=== PATIENT | female | born 2005 | race Caucasian/White ===

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

== ENCOUNTER 2024-01-06 15:01 | Outpatient (CLI) | payer MEDICAID, SELFPAY ==
[2024-01-06 15:01] VITALS: BMI 27.6
[2024-01-06 15:18] VITALS: BP 132/83; PULSE 91
[2024-01-06 15:33] VITALS: BP 131/89; PULSE 82
[2024-01-06 15:48] VITALS: BP 125/80; PULSE 99
[2024-01-06 17:01] VITALS: BP 124/79; PULSE 82
== END 2024-01-06 17:40 | disposition home or self-care (01) ==
LOC: OPOB 15:06 → OBGYN 15:07
PROVIDERS: Visit Provider Obstetrics & Gynecology
DX: O26.899 Other specified pregnancy related conditions, unspecified trimester (principal); Z3A.00 Weeks of gestation of pregnancy not specified; R10.9 Unspecified abdominal pain
CPT/HCPCS: 59025; 83986; 99211

== ENCOUNTER 2024-01-08 20:40 | Inpatient (IN) | payer MEDICAID, SELFPAY ==
[2024-01-08] VITALS (22 sets, daily range): BP systolic 133–204; BP diastolic 64–107; PULSE 92–123; TEMP 36.1–36.2; BMI 27.9
[2024-01-08 20:29] LABS: Basophils % 0.2 %; Eosinophils # 0.1 10^3/uL (0.0-0.8); Eosinophils % 0.9 %; Hematocrit 29.1 % (36-47); Lymphocytes # 2.4 10^3/uL (1.5-6.5); Lymphocytes % 19.2 %; Mean Corpuscular HGB Conc 34.4 g/dL (30-55); Mean Corpuscular Volume 90.1 fl (85-98); Mean Platelet Volume 10.4 fL (7.4-10.4); Monocytes # 0.8 10^3/uL (0.2-0.9); Monocytes % 6.3 %; Neutrophils # 9.06 10^3/uL (1.8-8.0); Neutrophils % 72.8 %; Nucleated Red Blood Cells % 0 %; Platelet Count 212 10^3/cmm (157-399); Red Blood Count 3.23 10^6/uL (3.85-5.65); Red Cell Distribution Width 14.7 % (12.1-15.1); White Blood Count 12.45 10^3/uL (4.5-13.0)
[2024-01-08] MEDS: magnesium sulfate premix 4 GM/100 ML PREMIX IV (20:57)
[2024-01-08] MEDS: dextrose 5%-lactated ringers 1,000 ML 125 ML IV (20:58)
--- NOTE | 2024-01-08 21:17 | P.HP_ITS ---
Providers/Chief Complaint 2 Admitting Physician: Mini Skelton DO Primary INSURANCE PREMIUM AUDITOR: Dr. Villafuerte Chief Complaint: Possible ROM and contractions HPI INSURANCE PREMIUM AUDITOR History of Present Illness Eva Sutton is a 18 year old female G1, P0 with LMP 04/13/2023 and MERARI 01/09/2024 currently at 39.6 weeks gestation admitted with complaints of spontaneous rupture membranes at 6:00 PM on 01/07/2024. Patient denies vaginal bleeding. She admits to good movement and occasional contraction. 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 Treatment was in [facility] at [facility]. Surgical history?multiple abdominal laparotomies for removal of neuroblastoma. Upon admissions patient's blood pressure was elevated, requiring magnesium sulfate for -induced hypertension treatment. This was explained to patient and her family to reduce the risk of seizure activity. I also reviewed hypertensive medication that will be used if needed to lower blood pressure to normal ranges. If monitoring indicates that the baby is not doing well and will not tolerate labor or if mother's blood pressure does not tolerate treatment and respond well then we may need to discuss treatment by section only if needed. Patient and family understands. Review of Systems 2 General: Reports: 10 or more systems reviewed and unremarkable except in HPI and below Medications/Allergies Home Medications Medication Instructions Recorded Confirmed Last Taken Type PNV 153-FA 400 mcg-om3 35 mg-dha 1 tab PO DAILY 05/21/23 01/08/24 01/08/24 History 25 mg-epa 5 mg-fish oil chew tablet ( Gummies) iron 1 tab PO DAILY 01/08/24 01/08/24 01/08/24 History Allergies Allergy/AdvReac Type Severity Reaction Status Date / Time No Known Allergies Allergy Verified 01/08/24 21:18 PFS INSURANCE PREMIUM AUDITOR 2 PFS: Medical History 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 She did have one large area cauterized. No pertinent past medical history neghx: htn,dm,thyroid,dvt/pe PCP: None Neuroblastoma chemotherapy and radiation treatment from age 4-7 years old. Treated in [place] at [facility] Surgical History History of laparotomy (~2007) to remove the neuroblastoma; she ended up having some chemotherapy and radiation. Family History Other Adopted Social History Smoking and tobacco/nicotine status: never used tobacco/nicotine Other Female Reproductive History: Hx Age of Menarche: 13 Duration of menses: 3-5 days Date of Last Menstrual Period: 04/13/23 Cycle Length: 28- 30 days Menstrual flow: normal/abnormal: normal Sexual History: How old were you when you first had sex?: 17 Less than 5 How long have you been with your current partner?: 1yr What is your sexual preference?: Heterosexual Sexual History Comment: History of genital warts at age 7, has not had an outbreak since age 12. History History History 2 1 Term 0 Miscarriages/Ectopic Living Children Care MERARI Calculator 2 Estimated Delivery Date Method Current WG Current Estimate 01/09/24 Ultrasound #1 39w 6d Other Estimates 01/18/24 LMP (Certain) 38w 4d Specific Issues/Plans * UTI- Ecoli treated 06/15/2023; NIC 09/22/23 * ANEMIA-- started bid iron at 24 weeks Vitals/I&O/Wt Last Vital Signs Pulse 123 H 01/08/24 21:14 BP 151/102 01/08/24 21:14 Physical Exam 2 Narrative: 18-year-old female alert and oriented x 3 in no acute distress. HENMT: COMMON NORMALS: normocephalic Resp: COMMON NORMALS: normal respiratory effort and clear to auscultation bilaterally Cardio: COMMON NORMALS: regular rate and regular rhythm OTHER: Slight murmur noted Back/Pelvis: COMMON NORMALS: no CVA tenderness OTHER: Pelvic exam via nursing staff?cervix 2/85%/-2 vertex presentation with clear fluid noted. Extremity: COMMON NORMALS: normal to inspection, no clubbing, cyanosis or edema, no calf tenderness and no pedal edema Neuro: COMMON NORMALS: patient oriented x3, CN's II-XII intact bilaterally and moves all extremities Psych: COMMON NORMALS: mental status grossly normal, Normal thought process present, cooperative, normal affect and activity/motor behavior normal Skin: COMMON NORMALS: no rashes or lesions noted and turgor normal Data 01/08/24 20:15 Results Labs OB ([facility]): 2 Obstetrics US 08/07/23 Blood Type A Positive 08/06/23 Antibody Screen Negative 08/06/23 Hct 29.1 % (36-47) L 01/08/24 Hgb 10.00 g/dL (12.4-14.8) L 01/08/24 Rho(D) Type Rh positive 08/06/23 Plt Count 212 10^3/cmm (157-399) 01/08/24 Hep Bs Antigen Non-reactive (Nonreactive) 06/15/23 Hepatitis C Antibody Non-reactive (Nonreactive) 06/15/23 Rubella IgG Antibody 16.8 IU/mL (0.0-10.0) H 06/15/23 RPR Nonreactive (Nonreactive) 06/15/23 HIV 1&2 Ab & HIV 1 Ag Non-reactive (Non-Reactiv) 06/15/23 TSH 2.62 uIU/mL (0.27-4.20) 06/15/23 Free T4 1.15 ng/dL (0.93-1.60) 06/15/23 C.trachomatis RNA (TMA) Not detected (NOT DETECTED) N.gonorrhoeae RNA (TMA) Not detected (NOT DETECTED) T. vaginalis Amp RNA Not detected (NOT DETECTED) 08/04/23 Chlamydia/GC Comment See note 08/04/23 Cystic Fibrosis Screen Negative 06/15/23 Glucose 1 Hr 50 gm 136 mg/dL (85-140) 09/22/23 Ser , Semi-Qnt 10143.00 mIU/mL 08/06/23 HCG, Qual Positive (Negative) H 05/21/23 Urine Opiates Screen Negative ng/mL (Negative) 06/15/23 Ur Barbiturates Screen Negative ng/mL (Negative) 06/15/23 Ur Phencyclidine Scrn Negative ng/mL (Negative) 06/15/23 Ur Amphetamines Screen Negative ng/mL (Negative) 06/15/23 U Benzodiazepines Scrn Negative ng/mL (Negative) 06/15/23 Urine Cocaine Screen Negative ng/mL (Negative) 06/15/23 U Marijuana (THC) Screen Negative ng/mL (Negative) 06/15/23 Micro Urine Specimen 11/11/23 A&P Assessment and plan (1) 39 weeks gestation of : History of neuroblastoma treated with chemo and radiation therapy ages 4-8. (2) Anemia affecting : Qualifiers: Trimester: second trimester Qualified Code(s): O99.012 - Anemia complicating , second trimester (3) Supervision of normal : Qualifiers: Normal : normal first Trimester: first trimester Qualified Code(s): Z34.01 - Encounter for supervision of normal first , first trimester (4) UTI (urinary tract infection) during : Qualifiers: Trimester: second trimester Qualified Code(s): O23.42 - Unspecified infection of urinary tract in , second trimester (5) SROM (spontaneous rupture of membranes): Attestations 2 Medical Necessity Statement*: 18-year-old female at 39.6 weeks gestati on with spontaneous rupture of membranes admitted to labor and delivery for management of labor. Patient has elevated blood pressure which will be treated as -induced hypertension with magnesium sulfate and PIH protocol if needed. Coding Level of Care Code Acute Code for Chg Fwd Diagnoses 39 weeks gestation of Z3A.39 Anemia affecting in second trimester O99.012 Trimester: second trimester Encounter for supervision of normal first in first trimester Z34.01 Normal : normal first Trimester: first trimester UTI (urinary tract infection) during O23.42 Trimester: second trimester SROM (spontaneous rupture of membranes)
[2024-01-08] MEDS: magnesium sulfate premix 20 GM/500 ML BAG IV (21:23)
[2024-01-08] MEDS: labetalol 5 mg/mL SDV 20mL 20 MG IVP (21:24)
[2024-01-08 21:56] LABS: Alanine Aminotransferase 17 U/L (0-33); Albumin Level 3.8 g/dL (3.5-5.2); Alkaline Phosphatase 286 U/L (35-105); Anion Gap 16.5 (5-19); Aspartate Amino Transferase 19 U/L (0-32); Blood Urea Nitrogen 11 mg/dL (6-20); Carbon Dioxide 22 mmol/L (22-29); Chloride 99 mmol/L (98-107); Creatinine Clr Calc Pharmacy 167.1684; Globulin 4.3 g/dL (1.3-4.6); Glomerular Filtration Rate 158.9 mL/min (90-130); Glucose 95 mg/dL (65-115); Osmolality Calculated 277 mOsm/kg (285-295); Potassium 3.5 mmol/L (3.5-5.1); Sodium 134 mmol/L (136-145); Total Bilirubin 0.2 mg/dL (0.15-1.2); Total Protein 8.1 g/dL (6.6-8.7); Uric Acid 4.7 mg/dL (2.4-5.7)
[2024-01-08 21:59] LABS: Urine Creatinine 112 mg/dL (28-217)
[2024-01-08 22:06] LABS: UPRO/UCREAT Ratio 0.38 mg/mg CR; Urine Protein Random 42 mg/dL
[2024-01-08 22:12] LABS: Add Urine Microscopic? YES; Bacteria Urine 1+ /hpf; Bilirubin Urine Neg (Negative); Blood Urine 2+ (Negative); Glucose Urine UA Norm (Normal); Ketones Urine Negative (Negative); Leukocyte Esterase Urine 1+ (Negative); Mucus Urine 2+ /hpf; Nitrate Urine Negative (Negative); Protein Urine 1+ (Negative); RBC Urine 0-4 /hpf (0-2); Specific Gravity, Urine 1.015 (1.005-1.030); Urine Appearance Clear (CLEAR); Urine Color Yellow (Yellow); Urobilinogen Urine 1 mg/dL (Negative); pH Urine 6.5 (5-7)
[2024-01-08 22:41] LABS: Amphetamines Screen Urine Negative (Negative); Barbiturates Screen Urine Negative (Negative); Benzodiazepines Screen Urine Negative (Negative); Cocaine Screen Urine Negative (Negative); Opiate Screen Urine Negative (Negative); PCP Screen Urine Negative (Negative); THC Screen Urine Negative (Negative)
[2024-01-08] MEDS: oxytocin 30 UNIT/500 ML BAG IV (23:00)
[2024-01-09] VITALS (112 sets, daily range): BP systolic 100–159; BP diastolic 55–105; PULSE 96–137; RESP 14–20; TEMP 35.7–36.4; O2SAT 89–100
[2024-01-09] MEDS: lactated ringers 1,000 ML 999 ML IV (01:20)
[2024-01-09] MEDS: ROPivacaine syringe 100 MG/50 ML SYRINGE 10 MG EPIDURAL ×2 (02:52→06:41)
--- NOTE | 2024-01-09 02:59 | ANES.PREANE2 ---
Pre-Anesthetic Assessment Height/Weight: Height 1.45 m Weight 58.513 kg Temp Pulse BP Pulse Ox O2 Del Method 97.2 F L 115 H 142/84 99 Room Air 01/08/24 22:02 01/09/24 02:57 01/09/24 02:54 01/09/24 02:57 01/08/24 22:09 Preop Diagnosis: IUP labor epidural Familial anesthetic complications: unknown- pt was adopted, she has no prior issues w/ anesthesia Was Beta Rhona taken within 24 hours: N/A Was Clonidine taken within 24 hours: N/A Social No alcohol and No tobacco Exam alert, oriented x 3 and clear to auscultation bilaterally Airway Mallampati: Class III Dentition: full History/ROS No significant history except as noted Pulmonary None reported CV/HEM None reported None reported Hepatic None reported GI Gastroesophageal Reflux Disease Metabolic None reported Musc/skel pt had neuroblastoma when she was 4-8 years old with chemo and radiation. Neuropsych None reported Anesthetic Plan ASA status: 2 Anesthesia: Anesthesia Evaluation and Regional (specify below) Risk of > 500 ml blood loss (7ml/kg in children): Yes, adequate IV access and fluids planned Medications/Allergies Home Medications Medication Instructions Recorded Confirmed Last Taken Type PNV 153-FA 400 mcg-om3 35 mg-dha 1 tab PO DAILY 05/21/23 01/08/24 01/08/24 History 25 mg-epa 5 mg-fish oil chew tablet ( Gummies) iron 1 tab PO DAILY 01/08/24 01/08/24 01/08/24 History Allergies Allergy/AdvReac Type Severity Reaction Status Date / Time No Known Allergies Allergy Verified 01/08/24 21:18 Current Medications Generic Name Dose Route Start Last Admin Trade Name Hugo PRN Reason Stop Dose Admin Magnesium Sulfate 20 gm in 500 mls @ 50 mls/hr 01/08/24 20:30 01/08/24 21:23 Magnesium Sulfate Premix IV 50 mls/hr .Q10H GENEVA Administration Dextrose/Lactated Ringer's 1,000 mls @ 125 mls/hr 01/08/24 20:30 01/08/24 20:58 Dextrose 5%-Lactated Ringers IV 125 mls/hr .Q8H GENEVA Administration Lactated Ringer's 1,000 mls @ 999 mls/hr 01/08/24 20:20 01/09/24 01:20 Lactated Ringers IV 999 mls/hr .Q1H1M PRN Administration See label comments Ropivacaine 100 mg in 50 mls @ 10 mls/hr 01/08/24 20:30 01/09/24 02:52 Naropin Syringe EPIDURAL 10 mls/hr .Q5H GENEVA Administration Oxytocin 30 unit in 500 mls @ 1 mls/hr 01/08/24 22:15 01/08/24 23:45 Pitocin IV 7 milliunit/min .Q24H GENEVA 7 mls/hr Titration Protocol 1 MILLIUNIT/MIN Labetalol HCl 20 mg 01/08/24 20:47 01/08/24 21:24 Labetalol 5 Mg/Ml Sdv 20ml IVP 20 mg PRN PRN Administration HYPERTENSION Protocol PFSH Anesthesia Medical History 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 She did have one large area cauterized. No pertinent past medical history neghx: htn,dm,thyroid,dvt/pe PCP: None Neuroblastoma chemotherapy and radiation treatment from age 4-7 years old. Treated in [place] at [facility] Surgical History History of laparotomy (~2007) to remove the neuroblastoma; she ended up having some chemotherapy and radiation. Family History Other Adopted Social History Smoking and tobacco/nicotine status: never used tobacco/nicotine Female Reproductive History : 1 Data Anesthesia 01/08/24 20:15 01/08/24 20:15 Short CBC 01/08/24 Range/Units 20:15 WBC 12.45 (4.5-13.0) 10^3/uL Hgb 10.00 L (12.4-14.8) g/dL Hct 29.1 L (36-47) % MCV 90.1 (85-98) fl Plt Count 212 (157-399) 10^3/cmm Neut % (Auto) 72.8 % Neut # (Auto) 9.06 H (1.8-8.0) 10^3/uL BMP 01/08/24 20:15 Sodium 134 L Potassium 3.5 Chloride 99 Carbon Dioxide 22 BUN 11 Creatinine 0.5 Glucose 95 Calcium 10.0 Liver Function 01/08/24 Range/Units 20:15 Total Bilirubin 0.2 (0.15-1.2) mg/dL AST 19 (0-32) U/L ALT 17 (0-33) U/L Alkaline Phosphatase 286 H (35-105) U/L Albumin 3.8 (3.5-5.2) g/dL Urine 01/08/24 Range/Units 20:45 Urine Color Yellow (Yellow) Urine Appearance Clear (CLEAR) Urine pH 6.5 (5-7) Ur Specific Boykin 1.015 (1.005-1.030) Urine Protein 1+ H (Negative) Urine Glucose (UA) Norm (Normal) Urine Ketones Negative (Negative) Urine Nitrate Negative (Negative) Urine Bilirubin Neg (Negative) Ur Leukocyte Esterase 1+ H (Negative) Urine RBC 0-4 H (0-2) /hpf Urine WBC 5-10 H (0-5) /hpf Blood Bank 01/08/24 20:15 Blood Type A Positive Rho(D) Type Rh positive Antibody Screen Negative Cardiac Studies: No Data to Display Anesthesia Procedures Epidural Time Out Performed: Yes Consents Signed: Procedure Consent Consent: requested by attending/covering physician, from patient, risks and benefits reviewed and patient agrees to proceed Lumbar Level: L4-L5 Epidural position: sitting Epidural procedure: sterile prep of area, 1% lidocaine to numb the area, 18 g needle, negative for paresthesia passed, neg for paresthesia, test dose given, 1.5% xylocaine 1:200k epi, placed PCEA, no systemic response, sterile dressing applied, L.U.D. no apparent complications and 0.2% Ropiavacaine @ mls/hr (10) Additional Comments: OSITO 5cm, catheter easily threaded to 5cm in the space. VS monitored throughout procedure and remained stable, pt educated on SUPPORT TECHNICIAN and report of procedure given to RN at bedside. Pt reports decreased pain with contractions.
[2024-01-09 03:59] LABS: Magnesium Level (OB Only) 6.3 mg/dL (5.0-7.5)
--- NOTE | 2024-01-09 07:34 | P.PN_ITS ---
TURN DOWN WORKER Subjective 2 Subjective: Interval history: Patient doing well, tolerating labor without complaints. Beginning to feel pressure with contractions. Blood pressure treated with labetalol. Cervix?7 to 8 cm / 80%/+1 vertex presentation. Extremities?slight edema, negative Homans' sign. Labor: Station: 0 Amniotic Membrane Status: Leaking Monitor Mode: External Contraction Pattern: Regular Status: Category I Vitals/I&O/Wt Last Vital Signs Temp 96.3 F L 01/09/24 04:13 Pulse 112 H 01/09/24 07:32 BP 119/78 01/09/24 07:32 Pulse Ox 98 01/09/24 05:01 O2 Del Method Room Air 01/08/24 22:09 01/08/24 01/09/24 01/09/24 22:59 06:59 14:59 Intake Total 52.25 / 52.25 Output Total 95 / 95 1320 / 1415 185 / 185 Balance -95 / -95 -1267.75 / -1362.75 -185 / -185 Weight last 48 hrs Weight 58.513 kg Physical Exam 2 Urinary Catheter Management: Ledesma: Cath Placed During This Visit: yes Reason for Continuing Indwelling Catheter: Accurate Measurement of Urinary Output in Critically Ill Patients Urinary Catheter Date of Insertion: 01/08/24 Urinary Catheter Time of Insertion: 21:15 Data 01/08/24 20:15 01/08/24 20:15 A&P Assessment and plan (1) Gestational hypertension: (2) SROM (spontaneous rupture of membranes): (3) 39 weeks gestation of : (4) Anemia affecting : Qualifiers: Trimester: second trimester Qualified Code(s): O99.012 - Anemia complicating , second trimester Plan Continue present care with labor augmentation. Attestations 2 Medical Necessity Statement*: 18-year-old female G1, P0 admitted to [facility] and delivery for management of labor at 39.6 weeks gestation with gestational hypertension. Coding Level of Care Code Acute Code for g Fwd Diagnoses Gestational hypertension O13.9 SROM (spontaneous rupture of membranes) 39 weeks gestation of Z3A.39 Anemia affecting in second trimester O99.012 Trimester: second trimester
[2024-01-09] MEDS: magnesium sulfate premix 20 GM/500 ML BAG IV (07:36)
[2024-01-09 09:49] LABS: Magnesium Level (OB Only) 9.2 mg/dL (5.0-7.5)
[2024-01-09] MEDS: oxytocin 30 UNIT/500 ML BAG 600 UNIT IV (10:50)
--- NOTE | 2024-01-09 11:00 | PM.DELIVERY ---
Delivery Note: Date of delivery: January 09, 2024 Pre-delivery diagnoses: 39.6 wk IUP Gesttional Hypertension SROM Anemia affecting Post-delivery diagnoses: same Procedure: Augmentation of Labor with Pitocin MgSO4 for Gestational Hypertension to decrease risk of Seizures Delivering Physician: Mini Skelton DO Estimated blood loss (mL): 400 Findings: normal male infant with NC x 1. Delivery: At complete dilatation patient has begun to feel pelvic pressure with contractions. 18-year-old delivered a viable male over a second-degree midline laceration. Nuchal cord x 1 was easily reduced followed by delivery of the anterior then posterior shoulders with the remainder of the baby's body to follow. Spontaneous robust cry was noted, the oral and nasal pathways bulb suction. After delay in cord clamping the umbilical cord was clamped x 2 and cut. The baby was then placed on mother's abdomen for bonding. Nursing staff performed evaluation as needed. Venous cord blood was obtained for pH-7.29. 8/9 weight?7.2 pounds anesthesia?epidural EBL 400 mL Laceration?second-degree midline repaired with 2-0 Vicryl with good anatomical catholic. The vaginal vault was explored the uterus and cleared of clots. Mother and infant are both in stable and satisfactory condition. Post-Delivery Status: Stable History History History 1 Term 1 Miscarriages/Ectopic Living Children 1 A&P Assessment and plan (1) 39 weeks gestation of : (2) SROM (spontaneous rupture of membranes): (3) Gestational hypertension: (4) Spontaneous vaginal delivery: 1. orders 2. Continue magnesium sulfate x 12 hours. 3. Will treat with labetalol if hypertensive medications needed. Coding Level of Care Code Acute Code for Chg Fwd Diagnoses 39 weeks gestation of Z3A.39 SROM (spontaneous rupture of membranes) Gestational hypertension O13.9 Spontaneous vaginal delivery O80
[2024-01-09] MEDS: dextrose 5%-lactated ringers 1,000 ML 55 ML IV (11:18)
[2024-01-09] MEDS: acetaminophen 325 mg Tablet 650 MG PO (12:01)
[2024-01-09] MEDS: benzocaine-menthol 78 gm Canister 1 SPRAY TOPICAL (13:07)
[2024-01-09] MEDS: ibuprofen 800 mg tablet PO ×2 (13:39→20:52)
[2024-01-09 15:53] LABS: Magnesium Level (OB Only) 5.8 mg/dL (5.0-7.5)
[2024-01-09 23:21] LABS: Mean Corpuscular HGB Conc 34.1 g/dL (30-55); Mean Corpuscular Hemoglobin 31.3 pg (27-33); Mean Corpuscular Volume 91.5 fl (85-98); Mean Platelet Volume 10.6 fL (7.4-10.4); Platelet Count 198 10^3/cmm (157-399); Red Blood Count 2.24 10^6/uL (3.85-5.65); Red Cell Distribution Width 15.2 % (12.1-15.1); White Blood Count 18.04 10^3/uL (4.5-13.0)
[2024-01-09 23:31] LABS: Hematocrit 20.5 % (36-47)
[2024-01-10] VITALS (93 sets, daily range): BP systolic 78–146; BP diastolic 47–94; PULSE 70–116; RESP 16; TEMP 35.1–37.1; O2SAT 89–100
[2024-01-10 06:26] LABS: Mean Corpuscular HGB Conc 34.4 g/dL (30-55); Mean Corpuscular Hemoglobin 31.7 pg (27-33); Mean Corpuscular Volume 92.3 fl (85-98); Mean Platelet Volume 10.4 fL (7.4-10.4); Platelet Count 182 10^3/cmm (157-399); Red Blood Count 2.08 10^6/uL (3.85-5.65); Red Cell Distribution Width 15.4 % (12.1-15.1); White Blood Count 16.89 10^3/uL (4.5-13.0)
[2024-01-10 06:32] LABS: Hematocrit 19.2 % (36-47)
--- NOTE | 2024-01-10 08:00 | ANE.PACU2 ---
Inpatient post-anesthesia follow up: Airway intact: Yes Vital signs: Temperature 98.8 F Pulse Rate 72 Respiratory Rate 16 Blood Pressure 119/69 Pulse Oximetry 100 Oxygen Delivery Me thod Room Air Oxygen Flow Rate Fraction of Inspir ed Oxygen Hydration adequate: Yes Nausea and vomiting: No Pain level: 1 Mental status: Baseline Epidural Start/End: Epidural Start Date: 01/09/24 Epidural Start Time: 02:25 Epidural End Date: 01/09/24 Epidural End Time: 12:00
[2024-01-10] MEDS: PRENATAL VIT NO.130/IRON/FOLIC 1 EACH TABLET PO (09:06)
[2024-01-10] MEDS: docusate sodium 100 mg Capsule PO ×3 (09:06→20:40)
[2024-01-10] MEDS: ibuprofen 800 mg tablet PO ×3 (09:06→20:26)
--- NOTE | 2024-01-10 09:21 | PM.OBGYPN ---
HEALTH SERVICE WORKER Subjective Subjective: Interval history: 18-year-old female G1, P1 s/p of viable male infant, doing well without complaints. Nursing staff called this morning with results of hemoglobin of 6.6 and hematocrit 19. Patient admits to some dizziness when going to the bathroom but denies headaches, shortness of breath or chest pain. Discussed symptoms of anemia from acute blood loss, and expected continued blood loss after vaginal delivery. Recommend blood transfusion of 2 units to decrease symptoms and complications in the near future. Patient verbalizes understanding and consents. Labor: Station: +1 Amniotic Membrane Status: Leaking Monitor Mode: Palpation Contraction Pattern: Regular Status: Category I Vitals/I&O/Wt Last Vital Signs Temp 97.7 F 01/10/24 07:50 Pulse 93 01/10/24 09:18 Resp 16 01/10/24 07:36 BP 114/56 01/10/24 09:18 Pulse Ox 98 01/10/24 09:18 O2 Del Method Room Air 01/10/24 04:00 01/09/24 01/10/24 01/10/24 22:59 06:59 14:59 Intake Total 53.958 / 1834.374 0 / 0 Output Total 1230 / 2770 425 / 3195 Balance -1176.042 / -935.626 -425 / -1360.626 0 / 0 Weight last 48 hrs Weight 58.513 kg Physical Exam Resp: COMMON NORMALS: normal respiratory effort and clear to auscultation bilaterally AUSCULTATION: clear to auscultation bilaterally Cardio: COMMON NORMALS: S1 normal heart sound present and S2 normal heart sound present HEART SOUNDS: S1 normal heart sound present and S2 normal heart sound present Back/Pelvis: OTHER: Abdomen soft, fundus firm at the level of the umbilicus. Lochia light Extremity: COMMON NORMALS: normal to inspection, no clubbing, cyanosis or edema and no calf tenderness Urinary Catheter Management: Ledesma: Cath Placed During This Visit: yes, but has since been removed by the nurse Reason for Continuing Indwelling Catheter: Decision to DC Catheter Urinary Catheter Date of Insertion: 01/08/24 Urinary Catheter Time of Insertion: 21:15 Date Urinary Catheter Removed: 01/09/24 Time Urinary Catheter Discontinued: 09:55 Ledesma Latex Free: Cath Placed During This Visit: yes, but has since been removed by the nurse Reason for Continuing Indwelling Catheter: Decision to DC Catheter Urinary Catheter Date of Insertion: 01/09/24 Urinary Catheter Time of Insertion: 13:00 Date Urinary Catheter Removed: 01/09/24 Time Urinary Catheter Discontinued: 20:45 Data 01/10/24 06:15 01/08/24 20:15 A&P Assessment and plan (1) Acute blood loss anemia: Transfused 2 units of packed red blood cells (2) Spontaneous vaginal delivery: (3) Gestational hypertension: (4) SROM (spontaneous rupture of membranes): (5) 39 weeks gestation of : Attestations Medical Necessity Statement*: Patient admitted to labor and delivery for management of labor after spontaneous rupture membranes. Patient has delivered, during care lab reflects acute blood loss. Patient is symptomatic with dizziness during ambulation therefore will transfuse 2 units of packed red blood cells. Coding Level of Care Code Acute Code for Chg Fwd Diagnoses Acute blood loss anemia D62 Spontaneous vaginal delivery O80 Gestational hypertension O13.9 SROM (spontaneous rupture of membranes) 39 weeks gestation of Z3A.39
[2024-01-10 16:14] LABS: Mean Corpuscular HGB Conc 35.6 g/dL (30-55); Mean Corpuscular Hemoglobin 31.3 pg (27-33); Mean Corpuscular Volume 87.9 fl (85-98); Mean Platelet Volume 10.4 fL (7.4-10.4); Platelet Count 176 10^3/cmm (157-399); Red Blood Count 3.23 10^6/uL (3.85-5.65); Red Cell Distribution Width 16.1 % (12.1-15.1); White Blood Count 16.52 10^3/uL (4.5-13.0)
[2024-01-10 16:24] LABS: Hematocrit 28.4 % (36-47)
--- NOTE | 2024-01-10 19:13 | P.DS_ITS ---
Discharge Providers ARCHIVES SPECIALIST Date of Admission: 01/08/24 20:40 Date of Discharge: 01/10/24 Attending Provider at Admission: Mini Skelton DO Attending Provider at Discharge: Mini Skelton DO Primary ARCHIVES SPECIALIST: Dr. Villafuerte Diagnoses at Discharge Discharge Diagnosis (1) Acute blood loss anemia: Details from hospital stay: 18-year-old female G1, P1 s/p of a viable male at 39.6 weeks [facility]. Patient was admitted to labor and delivery with spontaneous rupture membranes and irregular contractions, patient's blood pressure was noted to be elevated, patient was treated for gestational hypertension with magnesium sulfate throughout her labor. Labor was augmented with Pitocin, patient progressed to complete dilatation and delivered a viable male over second-degree laceration which was repaired with good anatomic oriental orthodox. Magnesium sulfate was discontinued after 12 hours, patient's blood pressures were reassuring and did not require hypertensive medication. Patient's lab revealed acute blood loss with a hemoglobin of 6.9 patient was transfused with 2 units of packed red blood cells due to dizziness with ambulation. Dizziness resolved after transfusion resulting with a hemoglobin of 10.1. VSS, afebrile Physical exam?unremarkable Lochia light Extremities?no edema negative Homans' sign. Status: Acute (2) Spontaneous vaginal delivery: Status: Acute (3) Gestational hypertension: Status: Acute (4) SROM (spontaneous rupture of membranes): Status: Acute (5) 39 weeks gestation of : Status: Acute Reason for Visit Reason for Visit: Possible ROM and contractions Hospital Course Hospital Course See above details from hospital stay. Information Peripartum Data: Delivery Method: Vaginal Laceration description: Perineal - 2nd Degree complications: transfusion Physical Exam Urinary Catheter Management: Ledesma: Cath Placed During This Visit: yes, but has since been removed by the nurse Reason for Continuing Indwelling Catheter: Decision to DC Catheter Urinary Catheter Date of Insertion: 01/08/24 Urinary Catheter Time of Insertion: 21:15 Date Urinary Catheter Removed: 01/09/24 Time Urinary Catheter Discontinued: 09:55 Ledesma Latex Free: Cath Placed During This Visit: yes, but has since been removed by the nurse Reason for Continuing Indwelling Catheter: Decision to DC Catheter Urinary Catheter Date of Insertion: 01/09/24 Urinary Catheter Time of Insertion: 13:00 Date Urinary Catheter Removed: 01/09/24 Time Urinary Catheter Discontinued: 20:45 History History History 2 1 Term 1 Miscarriages/Ectopic Living Children 1 Discharge Data Studies Completed and Pending Laboratory Results WBC 16.52 10^3/uL (4.5-13.0) H 01/10/24 16:04 RBC 3.23 10^6/uL (3.85-5.65) L 01/10/24 16:04 Hgb 10.10 g/dL (12.4-14.8) L D 01/10/24 16:04 Hct 28.4 % (36-47) L D 01/10/24 16:04 MCV 87.9 fl (85-98) 01/10/24 16:04 MCH 31.3 pg (27-33) 01/10/24 16:04 MCHC 35.6 g/dL (30-55) 01/10/24 16:04 RDW 16.1 % (12.1-15.1) H 01/10/24 16:04 Plt Count 176 10^3/cmm (157-399) 01/10/24 16:04 MPV 10.4 fL (7.4-10.4) 01/10/24 16:04 Neut % (Auto) 72.8 % 01/08/24 20:15 Lymph % (Auto) 19.2 % 01/08/24 20:15 [place] % (Auto) 6.3 % 01/08/24 20:15 Eos % (Auto) 0.9 % 01/08/24 20:15 Baso % (Auto) 0.2 % 01/08/24 20:15 Neut # (Auto) 9.06 10^3/uL (1.8-8.0) H 01/08/24 20:15 Lymph # (Auto) 2.4 10^3/uL (1.5-6.5) 01/08/24 20:15 [place] # (Auto) 0.8 10^3/uL (0.2-0.9) 01/08/24 20:15 Eos # (Auto) 0.1 10^3/uL (0.0-0.8) 01/08/24 20:15 Baso # (Auto) 0.0 10^3/uL (0.0-0.1) 01/08/24 20:15 Nucleated RBC % (auto) 0 % 01/08/24 20:15 Nucleated RBCs # 0.0 /100WBC 01/08/24 20:15 Sodium 134 mmol/L (136-145) L 01/08/24 20:15 Potassium 3.5 mmol/L (3.5-5.1) 01/08/24 20:15 Chloride 99 mmol/L (98-107) 01/08/24 20:15 Carbon Dioxide 22 mmol/L (22-29) 01/08/24 20:15 Anion Gap 16.5 (5-19) 01/08/24 20:15 BUN 11 mg/dL (6-20) 01/08/24 20:15 Creatinine 0.5 mg/dL (0.5-0.9) 01/08/24 20:15 GFR Calculation 158.9 mL/min (90-130) H 01/08/24 20:15 Glucose 95 mg/dL (65-115) 01/08/24 20:15 Calculated Osmolality 277 mOsm/kg (285-295) L 01/08/24 20:15 Uric Acid 4.7 mg/dL (2.4-5.7) 01/08/24 20:15 Calcium 10.0 mg/dL (8.5-10.5) 01/08/24 20:15 Magnesium 5.8 mg/dL (5.0-7.5) 01/09/24 14:52 Total Bilirubin 0.2 mg/dL (0.15-1.2) 01/08/24 20:15 AST 19 U/L (0-32) 01/08/24 20:15 ALT 17 U/L (0-33) 01/08/24 20:15 Alkaline Phosphatase 286 U/L (35-105) H 01/08/24 20:15 Total Protein 8.1 g/dL (6.6-8.7) 01/08/24 20:15 Albumin 3.8 g/dL (3.5-5.2) 01/08/24 20:15 Globulin 4.3 g/dL (1.3-4.6) 01/08/24 20:15 Urine Color Yellow (Yellow) 01/08/24 20:45 Urine Appearance Clear (CLEAR) 01/08/24 20:45 Urine pH 6.5 (5-7) 01/08/24 20:45 Ur Specific [place] 1.015 (1.005-1.030) 01/08/24 20:45 Urine Protein 1+ (Negative) H 01/08/24 20:45 Urine Glucose (UA) Norm (Normal) 01/08/24 20:45 Urine Ketones Negative (Negative) 01/08/24 20:45 Urine Blood 2+ (Negative) H 01/08/24 20:45 Urine Nitrate Negative (Negative) 01/08/24 20:45 Urine Bilirubin Neg (Negative) 01/08/24 20:45 Urine Urobilinogen 1 mg/dL (Negative) H 01/08/24 20:45 Ur Leukocyte Esterase 1+ (Negative) H 01/08/24 20:45 Urine RBC 0-4 /hpf (0-2) H 01/08/24 20:45 Urine WBC 5-10 /hpf (0-5) H 01/08/24 20:45 Ur Squamous Epith Cells 3-5 /hpf (0-5) 01/08/24 20:45 Amorphous Sediment Not Reportable 01/08/24 20:45 Urine Bacteria 1+ /hpf (NONE) H 01/08/24 20:45 Urine Mucus 2+ /hpf 01/08/24 20:45 U Random Total Protein 42 mg/dL 01/08/24 20:45 Urine Creatinine 112 mg/dL (28-217) 01/08/24 20:45 Protein/Creatinin Ratio 0.38 mg/mg CR 01/08/24 20:45 Urine Opiates Screen Negative ng/mL (Negative) 01/08/24 20:45 Ur Barbiturates Screen Negative ng/mL (Negative) 01/08/24 20:45 Ur Phencyclidine Scrn Negative ng/mL (Negative) 01/08/24 20:45 Ur Amphetamines Screen Negative ng/mL (Negative) 01/08/24 20:45 U Benzodiazepines Scrn Negative ng/mL (Negative) 01/08/24 20:45 Urine Cocaine Screen Negative ng/mL (Negative) 01/08/24 20:45 U Marijuana (THC) Screen Negative ng/mL (Negative) 01/08/24 20:45 Blood Type A Positive 01/08/24 20:15 Rho(D) Type Rh positive 01/08/24 20:15 Antibody Screen Negative 01/08/24 20:15 Crossmatch See Detail 01/08/24 20:15 Vitals Last Vital Signs Temp 98.3 F 01/10/24 09:38 Pulse 87 01/10/24 14:15 Resp 16 01/10/24 17:46 BP 114/81 01/10/24 14:15 Pulse Ox 100 01/10/24 12:13 O2 Del Method Room Air 01/10/24 04:00 Results Labs OB ([facility]): Obstetrics US 08/07/23 Blood Type A Positive 01/08/24 Antibody Screen Negative 01/08/24 Hct 28.4 % (36-47) L 01/10/24 Hgb 10.10 g/dL (12.4-14.8) L 01/10/24 Rho(D) Type Rh positive 01/08/24 Plt Count 176 10^3/cmm (157-399) 01/10/24 Hep Bs Antigen Non-reactive (Nonreactive) 06/15/23 Hepatitis C Antibody Non-reactive (Nonreactive) 06/15/23 Rubella IgG Antibody 16.8 IU/mL (0.0-10.0) H 06/15/23 RPR Nonreactive (Nonreactive) 06/15/23 HIV 1&2 Ab & HIV 1 Ag Non-reactive (Non-Reactiv) 06/15/23 TSH 2.62 uIU/mL (0.27-4.20) 06/15/23 Free T4 1.15 ng/dL (0.93-1.60) 06/15/23 C.trachomatis RNA (TMA) Not detected (NOT DETECTED) N.gonorrhoeae RNA (TMA) Not detected (NOT DETECTED) T. vaginalis Amp RNA Not detected (NOT DETECTED) 08/04/23 Chlamydia/GC Comment See note 08/04/23 Cystic Fibrosis Screen Negative 06/15/23 Glucose 1 Hr 50 gm 136 mg/dL (85-140) 09/22/23 Uric Acid 4.7 mg/dL (2.4-5.7) 01/08/24 Ser , Semi-Qnt 66120.00 mIU/mL 08/06/23 HCG, Qual Positive (Negative) H 05/21/23 Urine Opiates Screen Negative ng/mL (Negative) 01/08/24 Ur Barbiturates Screen Negative ng/mL (Negative) 01/08/24 Ur Phencyclidine Scrn Negative ng/mL (Negative) 01/08/24 Ur Amphetamines Screen Negative ng/mL (Negative) 01/08/24 U Benzodiazepines Scrn Negative ng/mL (Negative) 01/08/24 Urine Cocaine Screen Negative ng/mL (Negative) 01/08/24 U Marijuana (THC) Screen Negative ng/mL (Negative) 01/08/24 Micro Urine Specimen 11/11/23 Discharge Plan Discharge Patient Disposition: Home Condition: Stable Prescriptions: No Action Gummies 400 mcg-35 mg- 25 mg-5 mg tablet,chewable 1 tab PO DAILY iron 1 tab PO DAILY Discharge Orders: Discharge Order (Routine); Ordered 01/10/24 Ordered By: Mini Skelton Discharge Diet: Regular Discharge Activity: Limit activity as instructed Patient Instructions: Blood Transfusion, Depression (DC), Bleeding (DC), Preeclampsia and Eclampsia After Delivery (GEN), Vaginal Delivery (DC), Hemorrhage (DC), OB Discharge Report, OB Food/Drug Interaction Guide, Opioid Safety, Abnormal Bleeding Activity Restrictions/Additional Instructions: No heavy lifting pushing or pulling, no sexual intercourse x 6 weeks. Patient to follow-up with Dr. Villafuerte in 4 to 6 weeks. Patient encouraged to continue vitamins and iron. Assessment: 1. 18-year-old G1, P1 s/p 2. Gestational hypertension?resolving 3. S/p packed red blood cell transfusion x 2 units for acute blood loss. Plan of Treatment: DC to home patient to follow-up for visit in 4 weeks. Patient may room in if baby is not discharged today. Discharge Attestations ARCHIVES SPECIALIST Time Spent in Discharge Care*: less than 30 min Coding Level of Care Code Acute Code for Chg Fwd Diagnoses Acute blood loss anemia D62 Spontaneous vaginal delivery O80 Gestational hypertension O13.9 SROM (spontaneous rupture of membranes) 39 weeks gestation of Z3A.39
== END 2024-01-10 21:30 | disposition home or self-care (01) | DRG 806 ==
LOC: OPOB 20:40 → OBGYN 20:40
PROVIDERS: Admitting Provider Obstetrics & Gynecology; Visit Provider Obstetrics & Gynecology
DX: O13.4 Gestational [pregnancy-induced] hypertension without significant proteinuria, complicating childbirth (principal); D62 Acute posthemorrhagic anemia; Z37.0 Single live birth; O98.32 Other infections with a predominantly sexual mode of transmission complicating childbirth; O99.02 Anemia complicating childbirth; D64.9 Anemia, unspecified; O69.81X0 Labor and delivery complicated by cord around neck, without compression, not applicable or unspecified; O70.1 Second degree perineal laceration during delivery; Z3A.39 39 weeks gestation of pregnancy; Z87.898 Personal history of other specified conditions
CPT/HCPCS: 36415; 36430; 51702; 59025; 59409; 80053; 80306; 81001; 82570; 83735; 83986; 84156; 84550; 85025; 85027; 86850; 86900; 86920; 98960; 99211; J2590; J2795; J3475; J3490; J7120; J7121; P9016

== ENCOUNTER → 2024-02-17 07:57 | Outpatient (BNVA) | payer MEDICAID, SELFPAY | PROVIDERS: Visit Provider Obstetrics & Gynecology | DX: Z30.9 Encounter for contraceptive management, unspecified (principal) | CPT/HCPCS: 81025 ==

== ENCOUNTER → 2025-02-02 13:36 | Outpatient (BNVA) | payer OTHER, SELFPAY | PROVIDERS: Visit Provider Nurse Practitioner Women's Health | DX: Z34.90 Encounter for supervision of normal pregnancy, unspecified, unspecified trimester (principal) | CPT/HCPCS: 81025; 84702 ==

== ENCOUNTER → 2025-02-15 12:32 | Outpatient (BNVA) | payer OTHER, SELFPAY | PROVIDERS: Visit Provider Obstetrics & Gynecology | DX: Z36.87 Encounter for antenatal screening for uncertain dates (principal); Z3A.14 14 weeks gestation of pregnancy | CPT/HCPCS: 76801 ==

== ENCOUNTER → 2025-02-28 15:27 | Outpatient (BNVA) | payer OTHER, SELFPAY | PROVIDERS: Visit Provider Obstetrics & Gynecology | DX: O26.899 Other specified pregnancy related conditions, unspecified trimester (principal); R30.0 Dysuria | CPT/HCPCS: 84315 ==

== ENCOUNTER → 2025-03-19 09:22 | Outpatient (BNVA) | payer OTHER, SELFPAY | PROVIDERS: Visit Provider Nurse Practitioner Women's Health | DX: Z32.01 Encounter for pregnancy test, result positive (principal); Z87.59 Personal history of other complications of pregnancy, childbirth and the puerperium | CPT/HCPCS: 80053; 80307; 82570; 84156; 84315; 84550; 85025; 86592; 86762; 86803; 86850; 86900; 87086; 87340; 87491; 87591; 87661; 87806 ==

== ENCOUNTER → 2025-04-19 14:50 | Outpatient (BNVA) | payer OTHER, SELFPAY | PROVIDERS: Visit Provider Obstetrics & Gynecology | DX: Z34.92 Encounter for supervision of normal pregnancy, unspecified, second trimester (principal); Z3A.16 16 weeks gestation of pregnancy; Z87.59 Personal history of other complications of pregnancy, childbirth and the puerperium | CPT/HCPCS: 84315 ==